=== PATIENT | female | born 1970 | race Caucasian/White ===

== ENCOUNTER 2016-06-08 09:31 | Emergency (ER) | payer OTHER ==
[~2016-06-08] VITALS: Ht 172.7 cm; Wt 67.1 kg
[2016-06-08 10:16] LABS: ABSOLUTE BASOPHIL COUNT 0.1 /CUMM (0.0-0.2); ABSOLUTE EOSINOPHIL COUNT 0 /CUMM (0.0-0.7); ABSOLUTE GRANULOCYTE CT 2.2 /CUMM (1.4-6.5); ABSOLUTE MONOCYTE COUNT 0.4 /CUMM (0.10-0.60); BASOPHIL % 1.2 % (0.0-2.0); EOSINOPHIL % 0.8 % (0-5); GRANULOCYTE % 46.9 % (42.2-75.2); MEAN CORPUSCULAR HGB 31.2 PG (27.0-31.0); MEAN CORPUSCULAR HGB CONC 33.4 G/DL (33.0-37.0); MEAN CORPUSCULAR VOLUME 93.4 FL (81.0-99.0); MEAN PLATELET VOLUME 8.6 FL (7.4-10.4); PLATELET COUNT 205 /CUMM (130-400); RBC DISTRIBUTION WIDTH 12.9 % (11.5-14.5); RED BLOOD CELL CT 4.71 /CUMM (4.20-5.40); WHITE BLOOD CELL COUNT 4.8 /CUMM (4.8-10.8)
--- NOTE | 2016-06-08 10:27 | RADIOLOGY REPORT ---
EXAMINATION: XR CHEST CLINICAL INFORMATION: Shortness of breath. COMPARISON: None available at time of dictation. TECHNIQUE: 2 views of the chest were obtained. FINDINGS: The heart is normal in size. The lungs are clear. No pneumothorax or pleural effusion. Minimal degenerative changes of the thoracic spine. The osseous structures are intact. IMPRESSION: No pneumonia, pneumothorax or pleural effusion.
--- NOTE | 2016-06-08 11:18 | ED CARDIAC/CP/PALPITATIONS ---
History of Present Illness General Chief Complaint: Chest Pain Stated Complaint: CP Source: patient, old records Exam Limitations: no limitations Vital Signs & Intake/Output Vital Signs & Intake/Output Vital Signs Date Time Temp Pulse Resp B/P Pulse O2 O2 Flow FiO2 Ox Delivery Rate 06/08 1126 96.8 80 18 139/66 99 Room Air 06/08 1124 Room Air 06/08 0944 98.3 84 20 130/89 100 Room Air Allergies Coded Allergies: No Known Allergies (06/08/16) Triage Note: PT C/O TIGHTNESS IN CHEST X 1 WEEK WITH GENERAL WEAKNESS. STATES IT WENT AWAY BUT YESTERDAY IT CAME BACK WITH SOB. IT WENT AWAY. STATES SHE WOKE UP; THIS MORNING FEELING TIRED AND HER CHEST FELT HEAVY Triage Nurses Notes Reviewed? yes Onset: Gradual Duration: week(s): (1), intermittent Timing: recent history Quality/Severity: mild, aching, pressure Location: central Radiation: no radiation Activities at Onset: none Nitro Today/Relief: no nitro taken today Aspirin Today: no aspirin today Associated Symptoms: denies HPI: 45-year-old female presents emergency room with no known medical history nonsmoker complaining of a tightness pressure sensation substernally central chest nonradiating that she's had intermittently for the past 1 week. Patient denies any associated shortness of breath however states she's had been feeling more tired than normal. She denies dizziness lightheadedness palpitations pain with inspiration cough hemoptysis fever or chills. No recent immobility. She has not taken anything for her symptoms. She reports she had a history of similar episode several years ago for which she went to an urgent care and was referred to a steersman in [place] at which time she had a outpatient stress test that was unremarkable. No history of family history of sudden cardiac disease, symptoms are not worse with exertion (ANABEL PALOMINO) Past History Travel History Traveled to [place] past 21 day No Medical History Any Pertinent Medical History? none Surgical History Surgical History: none Psychosocial History What is your primary language Senegalese Tobacco Use: Never used ETOH Use: denies use Illicit Drug Use: denies illicit drug use Family History Hx Contributory? No (ANABEL PALOMINO) Review of Systems Review of Systems Constitutional: Reports: see HPI. All Other Systems: Reviewed and Negative Comments Review of systems: See HPI, All other systems negative. Constitutional, no chills no fever, no malaise HEENT: no sore throat no congestion, Cardiovascular: chest pain , no palpitation Skin, no rashes, no change in skin Respiratory: No dyspnea no cough no sputum GI: No nausea no vomiting, no diarrhea, : No dysuria No hematuria, no frequency, Muscle skeletal: No joint pain, no joint swelling, no back pain, no neck pain, Neurologic: No numbness no headache Psych: No stress Heme/endocrine: No bruising Immunology: No lymphadenopathy (ANABEL PALOMINO) Physical Exam Physical Exam General Appearance: well developed/nourished, alert, awake Cardiovascular: regular rate/rhythm Comments: Well-developed well-nourished person in no acute distress HEENT: Normal EENT exam; PERRL, EOMI, HEAD is atraumatic. moist mucous membranes. Neck: Supple, normal range of motion Back: Nontender, no CVA tenderness. Full range of motion Cardiovascular: Regular rate and rhythms no murmurs rubs Respiratory: Chest nontender.There were no bony deformities, no asymmetry. No respiratory distress. Patient speaking in full complete sentences. Breath sounds clear to auscultation bilaterally: NO W/R/R Abdomen: Soft, nontender nondistended, no appreciable organomegaly. Normal bowel sounds. No rebound/guarding, Extremity: No edema, full range of motion of extremities, normal and equal pulses bilaterally, 5 out of 5 strength noted to bilateral upper and lower extremities Neuro: Alert oriented x3, motor sensory normal, There were no obvious focal neurologic abnormalities. Skin: No appreciable rash on exposed skin, skin is warm and dry. Psych: Mood and affect is normal, memory and judgment is normal. Core Measures ACS in differential dx? Yes Severe Sepsis Present: No Septic Shock Present: No All Positive = PERC Ruled Out: Positive: age < 50 years, heart rate < 100 bpm, O2 sat > 94%, no hemoptysis, no hormone use, no prior DVT or PE, no unilateral leg swellin, no surgery/trauma w/ in 4w. (ANABLE PALOMINO) Progress Differential Diagnosis: AMI, aortic dissection, atrial fibrillation, cholecystitis, CHF/pulm edema, costochondritis, hyperventilation, musculoskeletal pain, myocarditis, pancreatitis, pericarditis, pneumonia, pneumothorax, PSVT, pulmonary embolism, PVCs/PACs, unstable angina Plan of Care: Orders Procedure Date/time Status TROPONIN LEVEL 06/08 944 Complete COMPREHENSIVE METABOLIC PANEL 06/08 944 Complete CBC WITHOUT DIFFERENTIAL 06/08 944 Complete EKG 06/08 933 Active Laboratory Tests 06/08/16 1006: Anion Gap 12, Estimated GFR > 60, BUN/Creatinine Ratio 15.0, Glucose 85, Calcium 9.8, Total Bilirubin 1.5 H, AST 29, ALT 26, Alkaline Phosphatase 60, Troponin I < 0.01, Total Protein 8.2, Albumin 4.5, Globulin 3.7, Albumin/Globulin Ratio 1.2 , CBC w Diff NO MAN DIFF REQ, RBC 4.71, MCV 93.4, MCH 31.2 H, RDW 12.9, MPV 8.6 , Gran % 46.9, Lymphocytes % 41.9, Monocytes % 9.2, Eosinophils % 0.8, Basophils % 1.2, Absolute Granulocytes 2.2, Absolute Lymphocytes 2.0, Absolute Monocytes 0.4, Absolute Eosinophils 0, Absolute Basophils 0.1, PUBS MCHC 33.4 Patient denies any symptoms at this time labs were ordered chest x-ray ordered from triage, I discussed with her at length all of her lab results symptoms have been intermittent in nature coming on randomly for the past 1 week I do not believe she requires repeat troponin patient is low risk given history for coronary disease perc criteria negative. Eyes close follow-up with primary care physician information provided advised return immediately however if she redeveloped symptoms or has any other concerns she feels comfortable with this plan I answered all of her questions (MOOK LOPEZ,ANABEL) Diagnostic Imaging: Viewed by Me: Radiology Read. Discussed w/RAD: Radiology Read. Radiology Impression: PATIENT: ERWIN EWING PRESENT AGE: 45 PATIENT ACCOUNT NO: [id number] : 68 LOCATION: [facility] ORDERING PHYSICIAN: MATEO COLEMAN DO (TBS) SERVICE DATE: 06/08/16 EXAM TYPE: RAD - XRY-CHEST XRAY, PA AND LATERAL EXAMINATION: XR CHEST CLINICAL INFORMATION: Shortness of breath. COMPARISON: None available at time of dictation. TECHNIQUE: 2 views of the chest were obtained. FINDINGS: The heart is normal in size. The lungs are clear. No pneumothorax or pleural effusion. Minimal degenerative changes of the thoracic spine. The osseous structures are intact. IMPRESSION: No pneumonia, pneumothorax or pleural effusion. DICTATED BY: MENA BLEVINS MD DATE /TIME DICTATED:06/08/161021 IT TECHNICIAN:ZEINA DATE/TIME TRANSCRIBED: 06/08/161021 CONFIDENTIAL, DO NOT COPY WITHOUT APPROPRIATE AUTHORIZATION. < Electronically signed in Other Vendor System> SIGNED BY: MENA BLEVINS MD 06/08/16 1027 Initial ED EKG: NORMAL SINUS AT 90, NO SPECIFIC st SEGMENT CHANGES, NORMAL AXIS NORMAL OR RALES Prior EKG: unchanged (2007) (ANABEL PALOMINO) Departure Departure Time of Disposition: 1123 Disposition: HOME OR SELF CARE Condition: Stable Clinical Impression Primary Impression: Atypical chest pain Referrals: HELLEN BRADLEY DO PATIENT HAS NO PRIMARY CARE DR (PCP/Family) Additional Instructions: Follow-up with primary care physician Dr. BRADLEY. Tylenol Motrin if needed return to the emergency room with any concerns Departure Forms: Customer Survey General Discharge Information (ANABEL PALOMINO) PA/TACTICAL INTELLIGENCE OFFICER Co-Sign Statement Statement: ED Attending supervision documentation- [] I saw and evaluated the patient. I have also reviewed all the pertinent lab results and diagnostic results. I agree with the findings and the plan of care as documented in the PA's/TACTICAL INTELLIGENCE OFFICER's documentation. x I have reviewed the ED Record and agree with the PA's/TACTICAL INTELLIGENCE OFFICER's documentation. [] Additions or exceptions (if any) to the PAs/TACTICAL INTELLIGENCE OFFICER's note and plan are summarized below: [] (REYNALDO ROGERS,ALLISON) Critical Care Note Critical Care Note Critical Care Time: non-applicable (ANABEL PALOMINO)
[2016-06-08 11:26] VITALS: BP 139/66
== END 2016-06-08 11:28 ==
LOC: ERH 09:31
PROVIDERS: Emergency Medicine
DX: R07.89 Other chest pain (principal)
CPT/HCPCS: 93005; 93010